=== PATIENT | male | born 1940 | race Caucasian/White ===

== ENCOUNTER 2019-01-23 10:46 | Inpatient (IN) | payer MEDICARE, BC ==
[~2019-01-23] VITALS: Ht 170.2 cm; Wt 37.5 kg
[~2019-01-23 10:46] MED LIST: ACET325T33 PO; AMIO200T4 PO; ASCO500C7 PO; ASPI-817 PO; BISA10SU55 RC; CALC1TAB32 PO; CARAS PO; CHOL100062 PO; CRAN425C6 PO; DUTA0.5C PO; IBAN150T21 PO; INSU100I12 SQ; MAGN400O19 PO; MEG40/1 PO; METO10TA92 PO; MIRT7.5T8 PO; MV-M1TAB2 PO; NA P230E RC; PANT40TA3 PO; SCOP1PAT21 TD; SENN-120 PO; TAMS-14 PO; UDMYL PO
[2019-01-23] MEDS ORDERED: CEFEPIME 2GM/50 ML (PMX) 50 ML IVPB STA (10:50)
[2019-01-23] MEDS ORDERED: SODIUM CHLORIDE 0.9% 1L BAG IV* STA (10:50)
[2019-01-23 10:52] VITALS: Ht 170.2 cm; Wt 37.5 kg
[2019-01-23] MEDS ORDERED: VANCOMYCIN 1 GM (PMX) 250 ML IVPB ONE (11:00)
[2019-01-23] MEDS ORDERED: ACETAMINOPHEN 325 MG TAB PO PRN ×2 (13:00→16:30)
[2019-01-23 15:50] VITALS: BP 110/55; PULSE 101; RESP 20
[2019-01-23] MEDS ORDERED: ACETAMINOPHEN 650 MG SUPP PR PRN (16:30)
[2019-01-23] MEDS ORDERED: BISACODYL (EC) 5 MG TAB PO PRN (16:30)
[2019-01-23] MEDS ORDERED: NA PHOSPHATE/BIPHOS 133 ML ENEMA PR PRN (16:30)
[2019-01-23] MEDS ORDERED: ONDANSETRON 4 MG INJ IV PRN (16:30)
[2019-01-23] MEDS ORDERED: DOCUSATE SODIUM 100 MG CAP PO PRN (16:30)
[2019-01-23] MEDS ORDERED: BISACODYL 10 MG SUPP PR PRN (16:30)
[2019-01-23] MEDS ORDERED: NACL 0.9% 3 ML SYG IV SCH (16:30)
[2019-01-23] MEDS: DEXTROSE 5%-0.45% NACL 1,000 ML IV SCH (16:57)
[2019-01-23] MEDS: METOCLOPRAMIDE 10 MG TAB PO SCH (17:22)
[2019-01-23 19:39] VITALS: BP 121/54; PULSE 94; RESP 18
[2019-01-23] MEDS: PANTOPRAZOLE (EC) 40 MG TAB PO SCH (20:47)
[2019-01-23] MEDS: SUCRALFATE (100 MG/ML) 10ML CUP PO SCH (20:47)
[2019-01-23] MEDS: TAMSULOSIN (SR) 0.4 MG CAP PO SCH (20:47)
[2019-01-23] MEDS ORDERED: FAMOTIDINE 20 MG TAB PO SCH (21:00)
[2019-01-24] VITALS (7 sets, daily range): BP systolic 97–155; BP diastolic 51–72; PULSE 75–98; RESP 20–28
[2019-01-24] MEDS: DEXTROSE 5%-0.45% NACL 1,000 ML IV SCH ×2 (02:23→11:31)
[2019-01-24] MEDS: SUCRALFATE (100 MG/ML) 10ML CUP PO SCH ×3 (08:42→20:15)
[2019-01-24] MEDS: AMIODARONE 200 MG TAB PO SCH (08:43)
[2019-01-24] MEDS: DUTASTERIDE 0.5 MG CAP PO SCH (08:44)
[2019-01-24] MEDS: PANTOPRAZOLE (EC) 40 MG TAB PO SCH ×2 (08:44→20:15)
[2019-01-24] MEDS: METOCLOPRAMIDE 10 MG TAB PO SCH ×3 (08:44→17:27)
[2019-01-24] MEDS: ENOXAPARIN 30 MG/0.3 ML SYG SC SCH (09:01)
[2019-01-24] MEDS: MEGESTROL (40 MG/ML) 10ML CUP PO SCH (09:19)
[2019-01-24] MEDS ORDERED: MAGNESIUM SULFATE 4 GM/100 ML 100 ML IVPB ONE (12:30)
[2019-01-24] MEDS: morphine 2 MG INJ IV PRN (12:40)
[2019-01-24] MEDS ORDERED: VANCOMYCIN IV PER PHARMACY XX SCH (14:00)
[2019-01-24] MEDS: PIPER-TAZO 2.25 GM (PMX) 50 ML IVPB SCH ×3 (14:22→23:50)
[2019-01-24] MEDS ORDERED: VANCOMYCIN 750 MG (PMX) 250 ML IVPB SCH (15:00)
[2019-01-24] MEDS ORDERED: VANCOMYCIN 750 MG (PMX) 250 ML IVPB ONE (15:00)
[2019-01-24] MEDS: POTASSIUM CHLORIDE 20 MEQ POWDER FOR ORAL SOLN PO SCH (17:27)
[2019-01-24] MEDS ORDERED: POTASSIUM CHLORIDE 100 ML IVPB ONE (18:00)
[2019-01-24] MEDS: TAMSULOSIN (SR) 0.4 MG CAP PO SCH (20:15)
[2019-01-25] VITALS (32 sets, daily range): BP systolic 84–140; BP diastolic 46–109; PULSE 77–96; RESP 19–41
[2019-01-25] MEDS ORDERED: VANCOMYCIN IV PER PHARMACY XX SCH (03:30)
[2019-01-25] MEDS ORDERED: PIPER-TAZO 3.375 GM IV (PMX) 100 ML IVPB SCH (03:30)
[2019-01-25] MEDS: PIPER-TAZO 2.25 GM (PMX) 50 ML IVPB SCH ×3 (05:35→20:00)
[2019-01-25] MEDS: DEXTROSE 5%-0.45% NACL 1,000 ML IV SCH (08:23)
[2019-01-25] MEDS: SUCRALFATE (100 MG/ML) 10ML CUP PO SCH ×3 (08:51→20:02)
[2019-01-25] MEDS: MEGESTROL (40 MG/ML) 10ML CUP PO SCH (08:51)
[2019-01-25] MEDS: POTASSIUM CHLORIDE 20 MEQ POWDER FOR ORAL SOLN PO SCH (08:51)
[2019-01-25] MEDS: DUTASTERIDE 0.5 MG CAP PO SCH (08:52)
[2019-01-25] MEDS: AMIODARONE 200 MG TAB PO SCH (08:52)
[2019-01-25] MEDS: PANTOPRAZOLE (EC) 40 MG TAB PO SCH ×2 (08:52→20:03)
[2019-01-25] MEDS: METOCLOPRAMIDE 10 MG TAB PO SCH ×3 (08:53→17:05)
[2019-01-25] MEDS: ENOXAPARIN 30 MG/0.3 ML SYG SC SCH (09:22)
[2019-01-25] MEDS ORDERED: DIPHENHYDRAMINE 50 MG INJ ONE (10:28)
[2019-01-25] MEDS ORDERED: DIPHENHYDRAMINE 50 MG INJ IV ONE (10:30)
[2019-01-25] MEDS: POTASSIUM CHLORIDE 100 ML IVPB SCH ×2 (10:51→12:04)
[2019-01-25] MEDS: morphine 2 MG INJ IV PRN ×2 (13:29→17:40)
[2019-01-25] MEDS ORDERED: VANCOMYCIN 500 MG (PMX) 100 ML IVPB SCH (15:00)
[2019-01-25] MEDS: TAMSULOSIN (SR) 0.4 MG CAP PO SCH (20:02)
[2019-01-25] MEDS ORDERED: DEXTROSE 5%-0.45% NACL 500 ML BAG IV* ONE (20:30)
[2019-01-25] MEDS ORDERED: FENTAnyl (DRIP) 1000 mcg/100mL 100 ML IV SCH (20:30)
[2019-01-25] MEDS ORDERED: ETOMIDATE 20 MG INJ IV SCH (22:30)
[2019-01-26] VITALS (95 sets, daily range): BP systolic 75–117; BP diastolic 25–62; PULSE 79–106; RESP 19–35
[2019-01-26] MEDS: PIPER-TAZO 2.25 GM (PMX) 50 ML IVPB SCH ×5 (00:48→23:43)
[2019-01-26] MEDS ORDERED: DEXTROSE 5%-0.45% NACL 500 ML BAG IV* ONE ×2 (01:00→05:30)
[2019-01-26] MEDS: NORepinephrine 8MG/250 ML (PMX 250 ML IV SCH ×3 (01:01→23:36)
[2019-01-26] MEDS: DEXTROSE 5%-0.45% NACL 1,000 ML IV SCH (02:52)
[2019-01-26] MEDS ORDERED: NA POLYST SULFON 15 GM/60 ML BTL ONE (05:01)
[2019-01-26] MEDS ORDERED: ALBUMIN HUMAN 25% 100 ML IV ONE (05:30)
[2019-01-26] MEDS: DUTASTERIDE 0.5 MG CAP PO SCH (09:00)
[2019-01-26] MEDS: MIDAZOLAM (DRIP) 50 mg/50 mL 50 ML IV SCH (09:11)
[2019-01-26] MEDS ORDERED: NA BICARBONATE 8.4% 50 ML SYG IV STA ×2 (09:12)
[2019-01-26] MEDS ORDERED: NA BICARBONATE 8.4% 50 ML SYG ONE (09:19)
[2019-01-26] MEDS: PANTOPRAZOLE (EC) 40 MG TAB PO SCH ×2 (09:33→20:08)
[2019-01-26] MEDS: AMIODARONE 200 MG TAB PO SCH (09:33)
[2019-01-26] MEDS: SUCRALFATE (100 MG/ML) 10ML CUP PO SCH ×3 (09:33→20:08)
[2019-01-26] MEDS: POTASSIUM CHLORIDE 20 MEQ POWDER FOR ORAL SOLN PO SCH (09:34)
[2019-01-26] MEDS: ENOXAPARIN 30 MG/0.3 ML SYG SC SCH (09:38)
[2019-01-26] MEDS: METOCLOPRAMIDE 10 MG TAB PO SCH ×3 (09:40→17:09)
[2019-01-26] MEDS: MEGESTROL (40 MG/ML) 10ML CUP PO SCH (10:51)
[2019-01-26] MEDS: SODIUM BICARBONATE (IV ADD) 100 MEQ in DEXTROSE 5% 900 ML IV SCH (10:52)
[2019-01-26] MEDS: PHENYLephrine 40 MG in DEXTROSE 5% 246 ML IV SCH (19:52)
[2019-01-26] MEDS: TAMSULOSIN (SR) 0.4 MG CAP PO SCH (20:08)
[2019-01-27] VITALS (104 sets, daily range): BP systolic 70–122; BP diastolic 30–66; PULSE 82–101; RESP 20–38
[2019-01-27] MEDS: SODIUM BICARBONATE (IV ADD) 100 MEQ in DEXTROSE 5% 900 ML IV SCH ×2 (00:58→14:25)
[2019-01-27] MEDS: PHENYLephrine 40 MG in DEXTROSE 5% 246 ML IV SCH ×5 (00:59→22:02)
[2019-01-27] MEDS: PIPER-TAZO 2.25 GM (PMX) 50 ML IVPB SCH ×4 (05:38→23:30)
[2019-01-27] MEDS ORDERED: GLUCOSE GEL 15 GRAM TUBE BUCCAL PRN (07:00)
[2019-01-27] MEDS ORDERED: DEXTROSE 50% 50 ML SYRINGE IV PRN ×2 (07:00)
[2019-01-27] MEDS ORDERED: GLUCAGON 1 MG INJ IM PRN (07:00)
[2019-01-27] MEDS ORDERED: GLUCOSE GEL 15 GRAM TUBE PO PRN ×2 (07:00)
[2019-01-27] MEDS: NORepinephrine 8MG/250 ML (PMX 250 ML IV SCH ×2 (07:18→13:55)
[2019-01-27] MEDS: POTASSIUM CHLORIDE 20 MEQ POWDER FOR ORAL SOLN PO SCH (09:00)
[2019-01-27] MEDS: DUTASTERIDE 0.5 MG CAP PO SCH (09:00)
[2019-01-27] MEDS: PANTOPRAZOLE (EC) 40 MG TAB PO SCH ×2 (09:38→21:03)
[2019-01-27] MEDS: AMIODARONE 200 MG TAB PO SCH (09:39)
[2019-01-27] MEDS: MEGESTROL (40 MG/ML) 10ML CUP PO SCH (09:39)
[2019-01-27] MEDS: METOCLOPRAMIDE 10 MG TAB PO SCH ×3 (09:39→17:26)
[2019-01-27] MEDS: SUCRALFATE (100 MG/ML) 10ML CUP PO SCH ×3 (09:39→21:03)
[2019-01-27] MEDS: ENOXAPARIN 30 MG/0.3 ML SYG SC SCH (09:45)
[2019-01-27] MEDS: INSULIN ASPART [NOVOLOG] 3 ML PEN SC SCH ×4 (09:54→21:06)
[2019-01-27] MEDS: morphine 2 MG INJ IV PRN ×2 (10:25→15:46)
[2019-01-27] MEDS ORDERED: VANCOMYCIN 500 MG (PMX) 100 ML IVPB SCH (11:00)
[2019-01-27] MEDS: MIDAZOLAM (DRIP) 50 mg/50 mL 50 ML IV SCH ×2 (11:23→18:40)
[2019-01-27] MEDS: VASOPRESSIN 60 UNIT in DEXTROSE 5% 57 ML IV SCH (12:36)
[2019-01-27] MEDS: TAMSULOSIN (SR) 0.4 MG CAP PO SCH (21:03)
[2019-01-27] MEDS ORDERED: INSULIN GLARGINE [LANTus] (100 UNITS/ML) SYG SC ONE (21:30)
[2019-01-28] VITALS (76 sets, daily range): BP systolic 58–114; BP diastolic 47–76; PULSE 0–166; RESP 0–26
[2019-01-28] MEDS: INSULIN ASPART [NOVOLOG] 3 ML PEN SC SCH ×4 (01:08→13:00)
[2019-01-28] MEDS: NORepinephrine 8MG/250 ML (PMX 250 ML IV SCH ×2 (02:01→10:36)
[2019-01-28] MEDS: VASOPRESSIN 60 UNIT in DEXTROSE 5% 57 ML IV SCH ×2 (02:04→04:18)
[2019-01-28] MEDS: PHENYLephrine 40 MG in DEXTROSE 5% 246 ML IV SCH ×4 (02:26→15:30)
[2019-01-28] MEDS: SODIUM BICARBONATE (IV ADD) 100 MEQ in DEXTROSE 5% 900 ML IV SCH ×2 (03:55→16:20)
[2019-01-28] MEDS: MIDAZOLAM (DRIP) 50 mg/50 mL 50 ML IV SCH (04:58)
[2019-01-28] MEDS: PIPER-TAZO 2.25 GM (PMX) 50 ML IVPB SCH ×2 (05:51→12:00)
[2019-01-28] MEDS: METOCLOPRAMIDE 10 MG TAB PO SCH ×2 (06:39→11:00)
[2019-01-28] MEDS ORDERED: LANSOPRAZOLE (SOLTAB) 30 MG TAB GTB SCH (09:00)
[2019-01-28] MEDS: SUCRALFATE (100 MG/ML) 10ML CUP PO SCH ×2 (09:38→13:00)
[2019-01-28] MEDS: POTASSIUM CHLORIDE 20 MEQ POWDER FOR ORAL SOLN PO SCH (09:39)
[2019-01-28] MEDS: DUTASTERIDE 0.5 MG CAP PO SCH (09:39)
[2019-01-28] MEDS: MEGESTROL (40 MG/ML) 10ML CUP PO SCH (09:39)
[2019-01-28] MEDS: AMIODARONE 200 MG TAB PO SCH (09:40)
[2019-01-28] MEDS: ENOXAPARIN 30 MG/0.3 ML SYG SC SCH (09:42)
[2019-01-28] MEDS ORDERED: MAGNESIUM SULFATE 2 GM/50 ML 50 ML IVPB ONE (12:00)
[2019-01-28] MEDS ORDERED: LORAZEPAM 2 MG INJ IV PRN (14:30)
[2019-01-28] MEDS ORDERED: morphine (DRIP) 100 MG/100 ML 100 ML IV SCH (15:30)
== END 2019-01-28 17:25 | disposition expired | DRG 871 ==
LOC: E/R 10:46 → TEL 12:52 → ICU 01-25 09:32
PROVIDERS: ADMIT Internal Medicine; ATTEND Internal Medicine
PROC: 5A1945Z Respiratory Ventilation, 24-96 Consecutive Hours (ICD-10-PCS; principal; 2019-01-25)
PROC: 0BH17EZ Insertion of Endotracheal Airway into Trachea, Via Natural or Artificial Opening (ICD-10-PCS; 2019-01-25)
DX: A41.9 Sepsis, unspecified organism (principal); J69.0 Pneumonitis due to inhalation of food and vomit; J96.01 Acute respiratory failure with hypoxia; E43 Unspecified severe protein-calorie malnutrition; N17.0 Acute kidney failure with tubular necrosis; R65.21 Severe sepsis with septic shock; C25.9 Malignant neoplasm of pancreas, unspecified; E46 Unspecified protein-calorie malnutrition; E87.4 Mixed disorder of acid-base balance; C79.9 Secondary malignant neoplasm of unspecified site; R64 Cachexia; Z68.1 Body mass index [BMI] 19.9 or less, adult; Z66 Do not resuscitate; D64.9 Anemia, unspecified; E11.9 Type 2 diabetes mellitus without complications; R62.7 Adult failure to thrive; I25.10 Atherosclerotic heart disease of native coronary artery without angina pectoris; I48.91 Unspecified atrial fibrillation; K29.70 Gastritis, unspecified, without bleeding; K20.9 Esophagitis, unspecified; N40.0 Benign prostatic hyperplasia without lower urinary tract symptoms; Z92.21 Personal history of antineoplastic chemotherapy; Z92.3 Personal history of irradiation; Z95.1 Presence of aortocoronary bypass graft; Z87.891 Personal history of nicotine dependence; Z79.4 Long term (current) use of insulin
CPT/HCPCS: 31500; 36415; 36600; 71045; 80048; 80053; 80202; 81001; 82306; 82803; 82962; 83036; 83605; 83735; 84100; 84439; 84443; 84480; 84484; 85025; 85610; 85730; 87081; 87086; 93005; 94002; 94003; 94770; 96365; 96375; 97161; A4310; J0692; J1200; J1650; J1815; J2250; J2270; J2370; J2543; J3010; J3370; J3475; J3480; J7030; J7042; J7070; P9047